=== PATIENT | female | born 1995 | race Caucasian/White ===

== ENCOUNTER 2016-08-01 07:21 | Emergency (ER) | payer OTHER ==
[~2016-08-01] VITALS: Ht 157.5 cm; Wt 72.7 kg
[~2016-08-01 07:21] MED LIST: ZITHROMAX500 M2 PO
[2016-08-01 07:23] VITALS: BP 132/84; PULSE 74; TEMP 98.6
[2016-08-01] MEDS ORDERED: ROBAXIN 75750 MG/TAB PO (07:57)
== END 2016-08-01 08:10 | disposition home or self-care (01) ==
LOC: COL.ER 07:21
DX: M25.511 Pain in right shoulder (principal); M54.89 Other dorsalgia; V43.52XA Car driver injured in collision with other type car in traffic accident, initial encounter; Y92.410 Unspecified street and highway as the place of occurrence of the external cause

== ENCOUNTER 2016-08-09 13:19 | Emergency (ER) | payer OTHER ==
[~2016-08-09] VITALS: Ht 157.5 cm; Wt 74.5 kg
[~2016-08-09 13:19] MED LIST changes: +ROBAXIN 75750 MG/TAB PO
[2016-08-09 13:28] VITALS: BP 125/93; TEMP 98.4
[2016-08-09 15:06] VITALS: PULSE 91
== END 2016-08-09 15:06 | disposition home or self-care (01) ==
LOC: COL.ER 13:19
DX: S39.012A Strain of muscle, fascia and tendon of lower back, initial encounter (principal); V49.60XA Unspecified car occupant injured in collision with unspecified motor vehicles in traffic accident, initial encounter; Y92.410 Unspecified street and highway as the place of occurrence of the external cause
CPT/HCPCS: J1885

== ENCOUNTER 2017-02-04 14:00 | Emergency (ER) | payer OTHER, BC ==
[~2017-02-04] VITALS: Ht 157.5 cm; Wt 79.0 kg
[2017-02-04 14:01] VITALS: BP 127/92; TEMP 98.3
[2017-02-04] MEDS ORDERED: PHENERGAN 25 TA25 MG PO (15:06)
[2017-02-04] MEDS ORDERED: FIORICET 325 MG1 TA1 PO (15:24)
[2017-02-04 15:32] VITALS: PULSE 77
== END 2017-02-04 15:34 | disposition home or self-care (01) ==
LOC: COL.ER 14:00
DX: G43.909 Migraine, unspecified, not intractable, without status migrainosus (principal)